=== PATIENT | male | born 1995 | race Caucasian/White ===

== ENCOUNTER 2018-12-03 18:11 | Emergency (ER) | payer SELFPAY ==
[~2018-12-03] VITALS: Ht 175.3 cm; Wt 113.6 kg
[2018-12-03 18:45] LABS: BASOPHILS % (AUTO) 0.8 % (0.0-2.0); EOSINOPHILS % (AUTO) 2.4 % (1.0-6.0); HEMOGLOBIN 14.6 g/dL (13.5-17.5); LYMPHOCYTES # (AUTO) 1.8 K/uL (1.0-4.8); LYMPHOCYTES % (AUTO) 22.1 % (22.0-44.0); MEAN CORPUSCULAR HEMOGLOBIN 28.4 pg (26.0-34.0); MEAN CORPUSCULAR VOLUME 83 fL (80-100); MONOCYTES # (AUTO) 0.6 K/uL (0.1-1.0); MONOCYTES % (AUTO) 7.3 % (2.0-9.0); NEUTROPHILS # (AUTO) 5.5 K/uL (1.8-7.7); NEUTROPHILS % (AUTO) 67.4 % (40.0-70.0); PLATELET COUNT (AUTO) 284 K/uL (150-450); RED BLOOD CELL COUNT(AUTO) 5.16 MIL/uL (4.50-5.90); RED CELL DISTRIBUTION WIDTH 13.9 % (11.5-14.5)
[2018-12-03 18:51] LABS: ANION GAP 13 mmol/L (8-16); CALCIUM, TOTAL 9.7 mg/dL (8.8-10.5); CARBON DIOXIDE 27 mmol/L (22-29); CHLORIDE 100 mmol/L (98-107); CREATININE 1.05 mg/dL (0.60-1.30); GLOMERULAR FILTR. RATE CALC > 60 mL/min (>60); GLUCOSE,RANDOM 124 mg/dL (70-110); POTASSIUM 3.7 mmol/L (3.5-5.1); SODIUM SERUM 140 mmol/L (136-145); UREA NITROGEN, BLOOD 17 mg/dL (7-18)
[2018-12-03 19:08] LABS: B-TYPE NATRIURETIC PEPTIDE 11 pg/mL (0-100)
[2018-12-03] MEDS ORDERED: LORazepam 2 MG/ML VIAL IVP ONE (19:30)
[2018-12-03] MEDS ORDERED: KETOROLAC TROMETHAMINE 30 MG/ML VIAL IVP ONE (19:30)
[2018-12-03 20:30] VITALS: BP 150/87
[2018-12-03] MEDS ORDERED: MAG HYDROX/AL HYDROX/SIMETH ES 30 ML SUSPENSION UDCUP PO ONE (21:30)
[2018-12-03] MEDS ORDERED: ACETAMINOPHEN 500 MG TABLET PO ONE (21:30)
== END 2018-12-03 21:46 | disposition home or self-care (01) ==
LOC: EMS 18:14
DX: R07.89 Other chest pain (principal); F41.9 Anxiety disorder, unspecified; R06.02 Shortness of breath; T40.7X5A Adverse effect of cannabis (derivatives), initial encounter; E66.9 Obesity, unspecified; I10 Essential (primary) hypertension; F12.90 Cannabis use, unspecified, uncomplicated; Z68.37 Body mass index [BMI] 37.0-37.9, adult; Y92.89 Other specified places as the place of occurrence of the external cause
CPT/HCPCS: 36415; 71045; 80048; 83880; 84484; 85025; 85379; 93005; 96374; 96375; 99284; J1885; J2060